=== PATIENT | male | born 1995 | race Caucasian/White ===

== ENCOUNTER 2017-08-06 02:24 | Emergency (ER) | payer SELFPAY ==
[~2017-08-06] VITALS: Ht 170.2 cm; Wt 90.5 kg
[2017-08-06 02:25] VITALS: BP 166/65; PULSE 98; RESP 18; TEMP 99.4; O2SAT 97
--- NOTE | 2017-08-06 02:49 | PD ---
HPI Chief Complaint: ENT Complaint Time Seen by Provider: 02:44 Travel History International Travel<30 days: No Contact w/Intl Traveler<30days: No Traveled to known affect area: No History of Present Illness HPI 22-year-old male states since Tuesday he has had nasal congestion, sore throat and chills. He denies any other concurrent complaints. He states he has had strep before and this does not feel like that. He denies any specific sick contacts. He states it hurts when he swallows. He denies other specific modifying factors. Quality sore. Location is throat. PFSH Past Medical History Medical History: Denies Significant Hx Tetanus Vaccination: > 5 Years Influenza Vaccination: No Past Surgical History Surgical History: No Previous Surgery Social History Alcohol Use: Yes (occassional) Tobacco Use: No Substance Use: No Allergies-Medications (Allergen,Severity, Reaction): Coded Allergies: No Known Allergies (Unverified , 08/06/17) Reported Meds & Prescriptions Reported Meds & Active Scripts Active Penicillin V Potassium 500 Mg Tab 500 Mg PO BID 10 Days Review of Systems Except as stated in HPI: all other systems reviewed are Neg Physical Exam Narrative General: No apparent distress, well appearing ENT: Posterior oropharyngx clear without exudate or erythema, moderate tonsillar hypertrophy noted, uvula midline, external auditory canals are normal. Bilateral TM clear Neck: Neck is supple, no meningeal signs, trachea is midline Cardiovascular: Regular rate and rhythm Lungs: No increased respiratory effort noted, CTA bilaterally Extremities: No edema Neuro: Awake, motor and sensation grossly intact, normal speech Data Data Last Documented VS Vital Signs Date Time Temp Pulse Resp B/P (MAP) Pulse Ox O2 Delivery O2 Flow Rate FiO2 08/06/17 02:41 16 08/06/17 02:25 99.4 98 166/65 (98) 97 Orders Orders Group A Rapid Strep Screen (08/06/17 02:46) Influenzae A/B Antigen (08/06/17 02:46) Ed Discharge Order (08/06/17 03:21) Ibuprofen (Motrin) (08/06/17 03:30) MDM Medical Decision Making Medical Screen Exam Complete: Yes Emergency Medical Condition: Yes Medical Record Reviewed: Yes (Past history confirmed) Interpretation(s) flu A and strep positive Differential Diagnosis Strep pharyngitis, mononucleosis, influenza Narrative Course We will check strep and flu and reevaluate Patient has no past medical history and is 22 years old. He is 2 days into his symptoms. He agrees to holding Tamiflu after discussing risk and benefit. Will prescribe penicillin for strep pharyngitis. Patient denies any new complaints, all questions answered. Patient knows that follow up is incumbent on them and to return to the emergency room immediately if new or worsening symptoms develop. Patient given strict return precautions, vitals reviewed and are normal , agrees to further workup as an outpatient. Diagnosis Primary Impression: Influenza A Additional Impression: Strep pharyngitis Patient Instructions: General Instructions Departure Forms: Tests/Procedures, Work Release Enter return to work date: Aug 08, 2017 Additional Instructions: return as needed, alternate tylenol and motrin, follow with primary tuesday for recheck Med/Other Pt SpecificInfo: Prescription(s) given Scripts Penicillin V Potassium (Penicillin V Potassium) 500 Mg Tab 500 MG PO BID for Infection for 10 Days, #20 TAB 0 Refills Prov: Yuki Morelos MD 08/06/17 Disposition: 01 DISCHARGE HOME Condition: Stable Yuki Morelos MD Aug 06, 2017 02:49
[2017-08-06] MEDS ORDERED: PENI500T PO (03:19)
[2017-08-06] MEDS ORDERED: IBUPROFEN 600 MG TAB PO ONE (03:30)
== END 2017-08-06 03:34 | disposition home or self-care (01) ==
LOC: NEPC 02:24
DX: J09.X2 Influenza due to identified novel influenza A virus with other respiratory manifestations (principal); J02.0 Streptococcal pharyngitis
CPT/HCPCS: 87804; 87880; 99283